=== PATIENT | male | born 1970 | race Hispanic/Latino ===

== ENCOUNTER 2016-10-23 15:44 | Emergency (ER) | payer BC, SELFPAY ==
[~2016-10-23 15:44] MED LIST: Iopamidol 370 76% 100 ML VIAL ONE
[2016-10-23] MEDS ORDERED: Sodium Chloride 0.9% 1,000 ML ONE (15:58)
[2016-10-23] MEDS ORDERED: Ondansetron HCl/PF 4 MG/2 ML Vial ONE (15:58)
[2016-10-23] MEDS ORDERED: Pantoprazole 40 MG VIAL ONE (16:03)
[2016-10-23 16:19] LABS: Bilirubin Negative (Negative); Blood, Urine Negative (Negative); Clarity Clear (Clear); Glucose, Urine (Dipstick) Negative (Negative); Hemoglobin 15.4 g/dL (14.0-18.0); Leukocyte Negative (Negative); Mean Corpuscular HGB CONC 32.1 g/dL (32.0-36.0); Mean Corpuscular Volume 99.5 fl (80.0-94.0); Mean Platelet Volume 7.4 fL (7.4-10.4); Nitrite Negative (Negative); Platelet Count 157 thou/uL (130-400); Protein, Urine (Dipstick) Negative (Neg-Trace); RBC Distribution Width 11.8 % (11.5-14.5); Red Blood Cell (RBC) Count 4.82 mill/uL (4.70-6.10); Urobilinogen 0.2 mg/dL (0.2-1.0); White Blood Cell (WBC) Count 5.6 thou/uL (4.8-10.8)
[2016-10-23 16:21] LABS: Specific Gravity, Urine 1.004 (1.002-1.036)
[2016-10-23 16:25] LABS: ALT (SGPT) 17 U/L (0-55); AST (SGOT) 19 U/L (5-34); Albumin 3.3 g/dL (3.5-5.0); Alkaline Phosphatase 92 U/L (40-150); Anion Gap 14 mmol/L (10-20); BUN (Urea Nitrogen) 5 mg/dL (8.9-20.6); Bilirubin, Total 0.5 mg/dL (0.2-1.2); Calc. Creatinine Clearance 0 mL/min (70-130); Calcium 8.3 mg/dL (7.8-10.44); Carbon Dioxide 23 mmol/L (22-29); Chloride 102 mmol/L (98-107); Estimated GFR-MDRD Greater than 90; Globulin 3.6 g/dL (2.4-3.5); Glucose 130 mg/dL (70-105); Lipase 36 U/L (8-78); Potassium 3.9 mmol/L (3.5-5.1); Protein, Total 6.9 g/dL (6.0-8.3); Sodium 135 mmol/L (136-145)
[2016-10-23 16:45] LABS: Band 21 % (5-11); Eosinophils 1 % (0-10); Lymphocytes 24 % (21-51); MDiff Complete? YES; Macrocytosis SLIGHT = 6-15 cells (100X) (0-5/hpf); Metamyelocyte 2 % (0-0); Monocytes 18 % (0-10); Neutrophil 30 % (42-75); PLT Morphology Comment Appears Adequate; Reactive Lymphocytes 4 % (0-10)
[2016-10-23] MEDS ORDERED: Ciprofloxacin 500 MG TAB ONE (17:12)
--- NOTE | 2016-10-23 17:33 | CT ---
ABDOMEN CT WITH CONTRAST PELVIC CT WITH CONTRAST: History: Hernia repair, bilateral inguinal hernias. Esophageal hernia. Watery diarrhea. Fever. Nause a. Vomiting. Symptoms x 3 days. Comparison: 11-25-02 Technique: Abdomen and pelvic CT performed with IV contrast. Coronal reformatted images are submitte d for interpretation. FINDINGS: ABDOMEN CT: Lung bases are clear. Heart size is normal. No pericardial effusions. Descending thoracic aorta and abdominal aorta have a normal caliber. No periaortic fat stranding. Symmetric attenuation of the psoas muscles. Intrahepatic portal vein is patent. Surgically absent gallbladder. Hypodensity in the liver, measuring 1.8 x 1.2 cm has an attenuation coefficient of 7 Hounsfield unit s, compatible with cysts. Prominence of the intra and extrahepatic biliary system due to reservoir affect secondary to previou s cholecystectomy. Spleen, pancreas, and adrenal glands have appropriate enhancement. Symmetric enhancement of the kidneys. Punctate nonobstructing calculus in the lower pole of the right kidney. Bilaterally, no hydronephros is or perinephric fat stranding. Bilateral ureters have a normal caliber. No hydroureter, perihepati c fat stranding or ureterolithiasis. There is mild stranding of the abdominal mesentery, nonspecific. No mass, lymphadenopathy, or free a ir. Trace amount of free fluid in both pericolic gutters. Limited evaluation of the alimentary canal due to lack of oral contrast administration. Previous hi atal hernia repair is noted. Multiple normal caliber small bowel loops are identified. No evidence o f small bowel dilatation or distention to suggest small bowel obstruction. There are some nonspecifi c mildly dilated loops of small bowel in the left hemiabdomen. Dilation of this region of uncertain significance. Focal ileus or early obstructive process cannot be completely excluded. As stated abov e, on the current study there is no evidence of high grade bowel obstruction. Normal caliber appendi x is noted. There is no mucosal thickening and pericolonic fat stranding involving the hepatic flexu re. Additional mucosal thickening and pericolonic fat stranding of the sigmoid colon is noted. Corre late for colitis. PELVIC CT: Urinary bladder is unremarkable. No mass, lymphadenopathy, free air or free fluid. There are no osteoblastic or osteolytic lesions. No evidence of an inguinal hernia. IMPRESSION: 1. Mucosal thickening and inflammatory change involving the hepatic flexure of the colon as well as the sigmoid colon. Correlate for colitis due to infectious or inflammatory process given multi-focal ity. 2. Normal caliber appendix. 3. Mildly prominent loops of small bowel in the left hemidiaphragm, nonspecific, correlate for ileus versus an early obstructive process. No evidence of high grade small bowel obstruction on the curre nt exam. POS: LYNETTE
== END 2016-10-23 17:21 | disposition home or self-care (01) ==
LOC: NAV ERS 15:44
DX: K52.9 Noninfective gastroenteritis and colitis, unspecified (principal); F17.210 Nicotine dependence, cigarettes, uncomplicated; Z90.49 Acquired absence of other specified parts of digestive tract
CPT/HCPCS: 74177; 80053; 81003; 83690; 85025; 96361; 96374; 96375; C9113; J2270; J2405; J7050

== ENCOUNTER 2017-09-26 14:26 | Emergency (ER) | payer BC ==
[2017-09-26] MEDS ORDERED: Ketorolac Tromethamine 30 MG/ML VIAL ONE (15:16)
[2017-09-26] MEDS ORDERED: diphenhydrAMINE 50 MG/ML VIAL ONE (15:16)
[2017-09-26] MEDS ORDERED: Sodium Chloride 0.9% 1,000 ML ONE (15:16)
[2017-09-26] MEDS ORDERED: Acetaminophen 500 MG TAB ONE (15:16)
[2017-09-26] MEDS ORDERED: Metoclopramide HCl 10 MG/2 ML VIAL ONE (15:16)
[2017-09-26] MEDS ORDERED: Sodium Chloride 0.9% 100 ML ONE (15:16)
== END 2017-09-26 16:31 | disposition home or self-care (01) ==
LOC: NAV ERS 14:26
DX: G43.909 Migraine, unspecified, not intractable, without status migrainosus (principal); F17.220 Nicotine dependence, chewing tobacco, uncomplicated; K91.1 Postgastric surgery syndromes
CPT/HCPCS: 96361; 96374; 96375; J1200; J1885; J2765; J7050

== ENCOUNTER 2017-11-30 15:53 | Emergency (ER) | payer BC ==
[2017-11-30] MEDS ORDERED: Sodium Chloride 0.9% 1,000 ML ONE (16:22)
[2017-11-30 16:34] LABS: Bilirubin Negative (Negative); Blood, Urine Negative (Negative); Clarity Clear (Clear); Glucose, Urine (Dipstick) Negative (Negative); Leukocyte Negative (Negative); Nitrite Negative (Negative); Protein, Urine (Dipstick) Negative (Neg-Trace); Urobilinogen 0.2 mg/dL (0.2-1.0)
[2017-11-30 16:57] LABS: ALT (SGPT) 26 U/L (8-55); AST (SGOT) 42 U/L (5-34); Albumin 4.3 g/dL (3.5-5.0); Alkaline Phosphatase 88 U/L (40-150); Anion Gap 15 mmol/L (10-20); BUN (Urea Nitrogen) 6 mg/dL (8.9-20.6); Bilirubin, Total 1.8 mg/dL (0.2-1.2); CK (CPK) 430 U/L (30-200); Calc. Creatinine Clearance 0 mL/min (70-130); Carbon Dioxide 26 mmol/L (22-29); Chloride 98 mmol/L (98-107); Estimated GFR-MDRD Greater than 90; Globulin 3.1 g/dL (2.4-3.5); Glucose 117 mg/dL (70-105); Potassium 4.1 mmol/L (3.5-5.1); Protein, Total 7.4 g/dL (6.0-8.3); Sodium 135 mmol/L (136-145)
[2017-11-30 17:07] LABS: #Basophils 0.1 thou/uL (0.0-0.2); #Lymphocytes 1.6 thou/uL (1.20-3.40); #Monocytes 0.6 thou/uL (0.11-0.59); #Neutrophils 3.7 thou/uL (1.40-6.50); %Basophils 2.1 % (0.0-1.0); %Eosinophils 0.7 % (0.0-10.0); %Lymphocytes 26.8 % (21.0-51.0); %Monocytes 10.1 % (0.0-10.0); %Neutrophils 60.3 % (42.0-75.0); Hemoglobin 14.3 g/dL (14.0-18.0); Mean Corpuscular HGB CONC 32.6 g/dL (32.0-36.0); Mean Corpuscular Hemoglobin 30.6 pg (27.0-31.0); Mean Corpuscular Volume 93.9 fl (80.0-94.0); Mean Platelet Volume 6.6 fL (7.4-10.4); Platelet Count 185 thou/uL (130-400); RBC Distribution Width 11.2 % (11.5-14.5); Red Blood Cell (RBC) Count 4.68 mill/uL (4.70-6.10); White Blood Cell (WBC) Count 6.1 thou/uL (4.8-10.8)
== END 2017-11-30 18:00 | disposition home or self-care (01) ==
LOC: NAV ERS 15:53
DX: M62.82 Rhabdomyolysis (principal); F17.220 Nicotine dependence, chewing tobacco, uncomplicated
CPT/HCPCS: 80053; 81003; 82550; 85025; 96360; J7050